=== PATIENT | male | born 1955 | race Caucasian/White ===

== ENCOUNTER 2018-11-07 10:00 | Outpatient (CLI) | payer BC, OTHER ==
[~2018-11-07] VITALS: Ht 177.8 cm; Wt 96.7 kg
[~2018-11-07 10:00] MED LIST: HYDR1TAB PO; LISI10TA; LISI1TAB8 PO; PRM25T PO; SIMV40TA4 PO
== END 2018-11-07 10:48 | disposition home or self-care (01) ==
LOC: PREOP 10:00
PROVIDERS: ATTEND Internal Medicine
DX: Z01.818 Encounter for other preprocedural examination (principal)

== ENCOUNTER 2018-11-09 07:36 | Day surgery (SDC) | payer OTHER ==
--- NOTE | 2018-11-05 11:16 | HISTORY AND PHYSICAL ---
DATE OF SERVICE: COLONOSCOPY HISTORY AND PHYSICAL HISTORY OF PRESENT ILLNESS: The patient is a 63-year-old white male, referred by Dr. Gold for screening colonoscopy. He had one other screening colonoscopy performed by myself 10 years ago, at which time, he had mild sigmoid diverticular disease with no evidence for neoplasia. He reports that he feels well, has had no change in bowel habits. Denies abdominal pain, melena or bright red blood per rectum. PAST MEDICAL HISTORY: Is significant for hypertension and hyperlipidemia with no known history of vascular disease. 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 He had a right knee scope in 2001. FAMILY HISTORY: Father with complications of an [place] at the age of 64. Mother of natural causes at the age of 98. He has had one brother, who has had some colon polyps removed, living at the age of 75. 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 He has a [id number] smoking history, but quit at the age of 30. He has a 5 to [id number] smoking history, but quit at the age of 30. He has occasional moderate alcohol intake. REVIEW OF SYSTEMS: CONSTITUTIONAL: He has had no night sweats, chills, fever or change in weight. CARDIOVASCULAR: He has had no chest pain, shortness of breath, syncope, presyncope or palpitations. PULMONARY: Denies dyspnea on exertion, asthma, cough or wheezing. GASTROINTESTINAL: As per the HPI. PHYSICAL EXAMINATION: GENERAL: Reveals a well-appearing white male in no acute distress. VITAL SIGNS: Weight is 213.6 pounds, blood pressure 142/80, heart rate 70 and regular. HEENT: Unremarkable. He has a Mallampati class 2 configuration with no pharyngeal erythema. Sclerae nonicteric. CHEST: Clear to auscultation. CARDIOVASCULAR: Reveals a regular rate and rhythm without murmur, S3 or S4. ABDOMEN: Soft, supple without mass, organomegaly or tenderness. He has a well-healed right upper quadrant scar. No bruits are noted. EXTREMITIES: Reveal no cyanosis, clubbing or edema. ASSESSMENT AND PLAN: The patient was set up for screening colonoscopy on 11/09/2018. Prep instructions with the Suprep kit were given and electronic medical record was reviewed. He is to abstain from aspirin and nonsteroidal medication in the interim. Job ID: [id number] DocumentID: [id number] Dictated Date: 10/25/2018 18:12:42 [employer] Date: 10/25/2018 18:27:37 Dictated By: CHICHI SCOTT MD
[2018-11-09] VITALS (11 sets, daily range): BP systolic 112–154; BP diastolic 72–95
[~2018-11-09] VITALS: Ht 177.8 cm; Wt 96.7 kg
[2018-11-09] MEDS ORDERED: D5 LR IV SOLUTION 1,000 ML IV ONE (07:38)
[2018-11-09] MEDS ORDERED: D5 LR IV SOLUTION 1,000 ML IV STA (08:06)
[2018-11-09] MEDS ORDERED: LIDOCAINE JELLY 2% 6 ML SYRINGE MM PRN (08:15)
[2018-11-09] MEDS ORDERED: MIDAZOLAM 2 MG/2 ML (VERSED) VIAL IVP ONE (08:15)
[2018-11-09] MEDS ORDERED: fentaNYL INJECTION 100 MCG/2 ML AMP IVP ONE (08:15)
[2018-11-09] MEDS ORDERED: MIDAZOLAM 2 MG/2 ML (VERSED) VIAL ONE ×2 (08:38→08:39)
[2018-11-09] MEDS ORDERED: fentaNYL INJECTION 100 MCG/2 ML AMP ONE ×2 (08:38)
[2018-11-09] MEDS ORDERED: LIDOCAINE JELLY 2% 6 ML SYRINGE ONE (08:38)
--- NOTE | 2018-11-09 09:19 | Pre-Op Note & Conscious Sedat ---
Pre-Operative Progress Note H&P Reviewed The H&P was reviewed, patient examined and no changes noted. Date H&P Reviewed: Nov 09, 2018 Time H&P Reviewed: 07:40 Conscious Sedation Pre-Proced ASA Score 2 For ASA 3 and 4: Consider anesthesia and medical clearance. Also, for patients with a history of failed moderate sedation consider anesthesia. Airway Lungs Heart ASA score ASA 1: a normal healthy patient ASA 2: a patient with a mild systemic disease (mid diabetes, controlled hypertension, obesity ASA 3: a patient with a severe systemic disease that limits activity (angina, COPD, prior Myocardial infarction) ASA 4: a patient with an incapacitating disease that is a constant threat to life (CHF, renal failure) ASA 5: a moribund patient not expected to survive 24 hrs. (ruptured aneurysm) ASA 6: a declared brain- patient whose organs are being harvested. For emergent operations, add the letter E after the classification Mallampati Classification Grade 2 Sedation Plan Analgesia, Amnesia, Plan communicated to team members, Discussed options with patient/fam, Discussed risks with patient/fam The patient is an appropriate candidate to undergo the planned procedure, sedation, and anesthesia. The patient immediately re-assessed prior to indication. CHICHI SCOTT MD Nov 09, 2018 09:19
--- NOTE | 2018-11-09 09:23 | Pre-Op Note & Conscious Sedat ---
Pre-Operative Progress Note H&P Reviewed The H&P was reviewed, patient examined and no changes noted. Date H&P Reviewed: Nov 09, 2018 Time H&P Reviewed: 08:30 Conscious Sedation Pre-Proced Time 07:40 ASA Score 2 For ASA 3 and 4: Consider anesthesia and medical clearance. Also, for patients with a history of failed moderate sedation consider anesthesia. Airway Lungs Heart ASA score ASA 1: a normal healthy patient ASA 2: a patient with a mild systemic disease (mid diabetes, controlled hypertension, obesity ASA 3: a patient with a severe systemic disease that limits activity (angina, COPD, prior Myocardial infarction) ASA 4: a patient with an incapacitating disease that is a constant threat to life (CHF, renal failure) ASA 5: a moribund patient not expected to survive 24 hrs. (ruptured aneurysm) ASA 6: a declared brain- patient whose organs are being harvested. For emergent operations, add the letter E after the classification Mallampati Classification Grade 2 Sedation Plan Analgesia, Amnesia, Plan communicated to team members, Discussed options with patient/fam, Discussed risks with patient/fam The patient is an appropriate candidate to undergo the planned procedure, sedation, and anesthesia. The patient immediately re-assessed prior to indication. CHICHI SCOTT MD Nov 09, 2018 09:23
--- NOTE | 2018-11-09 17:26 | OPERATIVE REPORT ---
DATE OF SERVICE: 11/09/2018 COLONOSCOPY SUMMARY INDICATION FOR THE PROCEDURE: Colonoscopy is performed for screening purposes. DESCRIPTION OF PROCEDURE: The patient was placed in left lateral decubitus position. Prior to undergoing colonoscopy, digital rectal evaluation was performed. Anal sphincter tone was normal and the perianal reflexes intact. Prostate is normal in size, anodular, nontender to digital inspection. No abnormalities on digital inspection of the anal canal or distal rectal vault. The colonoscope was then inserted into the rectum and under direct visualization advanced to the cecum. The cecum was identified by identification of ileocecal valve and cecal strap. Photographic documentation was obtained. Careful inspection was made as the colonoscope was withdrawn. FINDINGS: There is no evidence for internal or external hemorrhoids. The rectum was unremarkable. Several small sigmoid diverticula were present without evidence for diverticulitis. No other sigmoid colonic abnormalities were appreciated. The descending colon, splenic flexure, transverse colon and hepatic flexure were unremarkable. Present in the proximal ascending colon was a diminutive sessile polyp, biopsied and ablated with no subsequent blood loss. The remainder of the ascending colon and cecum was unremarkable. ASSESSMENT: 1. Mild diverticular disease confined to the sigmoid colon was present without evidence for diverticulitis. 2. One diminutive polyp was removed from the proximal ascending colon. As long as there are no surprise on histopathology report, we would advise consideration for repeat surveillance colonoscopy in 5 years. I thank you for the referral of this pleasant gentleman. Job ID: [id number] DocumentID: [id number] Dictated Date: 11/09/2018 10:36:27 [employer] Pump Operator Date: 11/09/2018 17:25:30 Dictated By: CHICHI SCOTT MD
== END 2018-11-09 10:00 | disposition home or self-care (01) ==
LOC: ENDO 07:36
PROVIDERS: ATTEND Internal Medicine
DX: Z12.11 Encounter for screening for malignant neoplasm of colon (principal); D12.2 Benign neoplasm of ascending colon; K57.30 Diverticulosis of large intestine without perforation or abscess without bleeding; I10 Essential (primary) hypertension; E78.5 Hyperlipidemia, unspecified; Z82.49 Family history of ischemic heart disease and other diseases of the circulatory system; Z83.71 Family history of colonic polyps; Z87.891 Personal history of nicotine dependence